=== PATIENT | male | born 1985 | race Caucasian/White ===

== ENCOUNTER 2017-02-24 06:56 | Emergency (ER) | payer SELFPAY ==
[2017-02-24 07:00] VITALS: BP 131/72; PULSE 90; RESP 16; TEMP 98.4; O2SAT 99
== END 2017-02-24 07:10 | disposition left against medical advice (07) ==
LOC: NED 06:56
DX: Z00.8 Encounter for other general examination (principal); Z53.21 Procedure and treatment not carried out due to patient leaving prior to being seen by health care provider